=== PATIENT | male | born 1990 | race Two or more races ===

== ENCOUNTER 2023-05-19 14:36 | Emergency (ER) | payer MEDICAID, OTHER ==
[~2023-05-19] VITALS: Ht 172.7 cm; Wt 121.7 kg
[2023-05-19] MEDS ORDERED: IBUP-1456 PO (19:02)
[2023-05-19] MEDS ORDERED: CYCL-837 PO (19:02)
[2023-05-19] MEDS ORDERED: KETOROLAC TROMETH 60MG/2ML VIAL IM ONE (20:00)
[2023-05-19 20:10] VITALS: BP 129/91; PULSE 83; RESP 20; TEMP 98.2; O2SAT 97
== END 2023-05-19 21:12 | disposition home or self-care (01) ==
LOC: ER 14:36
DX: R51.9 Headache, unspecified (principal)
CPT/HCPCS: 70450; 96372; 99285; J1885

== ENCOUNTER 2023-10-20 09:32 | Emergency (ER) | payer MEDICAID ==
[~2023-10-20] VITALS: Ht 170.2 cm; Wt 124.7 kg
[~2023-10-20 09:32] MED LIST: CYCL-837 PO; IBUP-1456 PO
[2023-10-20 10:06] VITALS: BP 135/85; PULSE 67; RESP 18; O2SAT 96
== END 2023-10-20 15:15 | disposition left against medical advice (07) ==
LOC: ER 09:32
DX: S01.112D Laceration without foreign body of left eyelid and periocular area, subsequent encounter (principal); Z48.02 Encounter for removal of sutures; Z53.21 Procedure and treatment not carried out due to patient leaving prior to being seen by health care provider; X58.XXXD Exposure to other specified factors, subsequent encounter